=== PATIENT | female | born 1965 | race Caucasian/White ===

== ENCOUNTER → 2017-05-12 | Outpatient (CLI) | payer MEDICAID ==
--- NOTE | 2017-05-13 07:20 | CT ---
EXAMINATION TYPE: CT chest wo con DATE OF EXAM: 05/12/2017 COMPARISON: NONE HISTORY: Patient has no chest complaints at time of study. Patient complains of left shoulder pain. Abnormal CXR at doctor's office. CT DLP: 546 mGycm. Automated Exposure Control for Dose Reduction was Utilized. TECHNIQUE: CT scan of the thorax is performed without IV contrast. FINDINGS: LUNGS: The lungs are grossly clear, there is no concerning parenchymal mass or nodule identified. T here is no pleural effusion or pneumothorax seen. The tracheobronchial tree is patent. MEDIASTINUM: Lack of IV contrast is noted to limit evaluation for mediastinal and especially hilar ad enopathy. There are no definitive greater than 1 cm hilar or mediastinal lymph nodes. No cardiomega ly or pericardial effusion is seen. OTHER: Subcentimeter low low dense lesion left hepatic dome axial image 51 is too small to further ch aracterize but presumed benign. There is slight levoconvex scoliosis centered in the upper thoracic s pine. There is moderate multilevel spurring in the mid to lower thoracic spine. IMPRESSION: No suspicious acute pulmonary process. No suspicious nodule or mass identified.
== END ==
LOC: RADCTMAIN 19:05
PROVIDERS: ATTEND Family Medicine
DX: R93.8 Abnormal findings on diagnostic imaging of other specified body structures (principal)
CPT/HCPCS: 71250

== ENCOUNTER → 2017-07-05 | Outpatient (CLI) | payer MEDICAID ==
[2017-07-05 09:43] LABS: Basophils % (A) 1 %; Eosinophils # (A) 0.1 k/uL (0-0.7); Eosinophils % (A) 3 %; HCT 41.2 % (34.0-46.0); HGB 13.9 gm/dL (11.4-16.0); Lymphocytes # (A) 1.9 k/uL (1.0-4.8); Lymphocytes % (A) 39 %; MCH 31.6 pg (25.0-35.0); MCHC 33.7 g/dL (31.0-37.0); Mean Platelet Volume 7.1; Monocytes # (A) 0.3 k/uL (0-1.0); Monocytes % (A) 6 %; Neutrophils # (A) 2.5 k/uL (1.3-7.7); Neutrophils % (A) 50 %; Platelet Count 235 k/uL (150-450); RBC 4.38 m/uL (3.80-5.40); RDW 12.8 % (11.5-15.5)
[2017-07-05 09:53] LABS: C Reactive Protein <5.0 mg/L (<10.0); Uric Acid 3.7 mg/dL (3.7-7.4)
[2017-07-05 10:37] LABS: Erythrocyte Sedimentation Rate 2 mm/hr (0-20)
[2017-07-05 15:05] LABS: Rheumatoid Factor 4 IU/mL (0-15)
[2017-07-05 16:44] LABS: DNA Double-Stranded NEGATIVE (NEGATIVE)
[2017-07-06 10:25] LABS: HLA B27 NEGATIVE
== END | disposition home or self-care (01) ==
LOC: LABWHC1 08:56
PROVIDERS: ATTEND Orthopaedic Surgery
DX: M25.50 Pain in unspecified joint (principal)
CPT/HCPCS: 36415; 84550; 85025; 85652; 86038; 86140; 86225; 86431; 86812